=== PATIENT | female | born 1945 | race Hispanic/Latino ===

== ENCOUNTER → 2023-04-28 | Outpatient (CLI) | payer OTHER | END | disposition home or self-care (01) | LOC: SHCH 08:10 | PROVIDERS: ATTEND Internal Medicine Cardiovascular Disease | DX: I08.8 Other rheumatic multiple valve diseases (principal); R07.1 Chest pain on breathing; I10 Essential (primary) hypertension; E78.5 Hyperlipidemia, unspecified | CPT/HCPCS: 93306 ==

== ENCOUNTER → 2023-05-01 | Outpatient (CLI) | payer OTHER ==
[~2023-05-01] MED LIST: REGADENOSON 0.4 MG/5 ML PF SYG IVP ONE
== END | disposition home or self-care (01) ==
LOC: SHCH 07:34 → EDUNIT# 08:20
PROVIDERS: ATTEND Internal Medicine Cardiovascular Disease
DX: R07.9 Chest pain, unspecified (principal); R55 Syncope and collapse
CPT/HCPCS: 78452; 93017; J2785; A9500 ×2; 96374

== ENCOUNTER 2023-11-22 05:58 | Day surgery (SDC) | payer OTHER ==
[2023-11-22] VITALS (12 sets, daily range): BP systolic 111–146; BP diastolic 46–60; PULSE 50–70; RESP 13–16
[~2023-11-22] VITALS: Ht 154.9 cm; Wt 38.1 kg
[~2023-11-22 05:58] MED LIST changes: +ALPR0.5T8 PO; +AMLO-257 PO; +ATOR10 PO; +BREX1TAB PO; +GABA-529 PO; +LEVO25CA4 PO; +MELO-106 PO; -REGADENOSON 0.4 MG/5 ML PF SYG IVP ONE; +ROPI1TAB46 PO; +[UNRECOGNIZED DRUG - CODE] PO
[2023-11-22] MEDS: 0.9%NACL 1000ML 1,000 ML IV ONE (07:28)
[2023-11-22] MEDS ORDERED: PROPOFOL 10 MG/ML 20ML VIAL IV ONE (08:43)
== END 2023-11-22 10:30 | disposition home or self-care (01) ==
LOC: DAH 05:58 → ENDO 05:58
PROVIDERS: ATTEND Internal Medicine
DX: Z12.11 Encounter for screening for malignant neoplasm of colon (principal); K56.2 Volvulus; D50.9 Iron deficiency anemia, unspecified; I10 Essential (primary) hypertension; E78.00 Pure hypercholesterolemia, unspecified; F41.9 Anxiety disorder, unspecified; F32.A Depression, unspecified; G20.A2 Parkinson's disease without dyskinesia, with fluctuations; K80.20 Calculus of gallbladder without cholecystitis without obstruction; Z98.891 History of uterine scar from previous surgery; Z79.899 Other long term (current) drug therapy
CPT/HCPCS: 43239; G0121; J7030; J2704; A4620; A4215 ×2; A4223; A4222; A4221; A4663; A4606; J3490

== ENCOUNTER → 2024-03-05 | Outpatient (CLI) | payer OTHER | END | disposition home or self-care (01) | LOC: SHCH 10:40 | PROVIDERS: ATTEND Internal Medicine Cardiovascular Disease | DX: I70.293 Other atherosclerosis of native arteries of extremities, bilateral legs (principal); R60.9 Edema, unspecified; I87.2 Venous insufficiency (chronic) (peripheral) | CPT/HCPCS: 93925 ==

== ENCOUNTER → 2024-03-11 | Outpatient (CLI) | payer OTHER | END | disposition home or self-care (01) | LOC: RAH 14:11 | PROVIDERS: ATTEND Family Medicine | DX: M47.816 Spondylosis without myelopathy or radiculopathy, lumbar region (principal); M48.061 Spinal stenosis, lumbar region without neurogenic claudication; M43.8X6 Other specified deforming dorsopathies, lumbar region; M79.604 Pain in right leg | CPT/HCPCS: 72110 ==

== ENCOUNTER → 2024-06-13 | Outpatient (CLI) | payer OTHER ==
[2024-06-13 18:17] LABS: CHOLESTEROL 174 mg/dL (<200); HDL CHOLESTEROL 98 mg/dL (35-85); LDL DIRECT 66 mg/dL (0-99); TRIGLYCERIDES 45 mg/dL (30-200)
== END | disposition home or self-care (01) ==
LOC: LAB 13:43
PROVIDERS: ATTEND Internal Medicine Cardiovascular Disease
DX: E78.5 Hyperlipidemia, unspecified (principal)
CPT/HCPCS: 36415; 80061